=== PATIENT | male | born 1935 | race Caucasian/White ===

== ENCOUNTER 2021-04-19 09:28 | Emergency (ER) | payer MEDICARE, MEDICAID ==
[~2021-04-19] VITALS: Ht 182.9 cm; Wt 100.0 kg
[~2021-04-19 09:28] MED LIST: AMLODIPINE5 MG PO; ASPIRIN EC81 MG PO; ATORVASTATIN CA40 MG PO; BENAZEPRIL10 MG PO; CIPROFLOXACN500 MG OR; FLOMAX0.4 M1 OR; FLONASE NASAL50 MCG NAB; HYDROMORPHON2 MG OR; LISINOPRIL20 M1 PO; LOTREL 5/101 CAP OR; [UNRECOGNIZED DRUG - REMARK]
[2021-04-19 10:19] LABS: IMMATURE GRANULOCYTES 0.3 % (0.0-5.0); MEAN CORPUSCULAR HGB 31.5 pG CALC (26.0-32.0); MEAN CORPUSCULAR HGB CONC 33.3 g/dL CAL (32.0-36.0); NEUT# 4.79 thou/uL (1.82-7.42); RED BLOOD COUNT 4.44 mill/uL (4.70-6.10); RED CELL DISTRI WIDTH 12.6 % (11.5-15.5)
[2021-04-19 10:20] LABS: MEAN CELL VOLUME 94.6 fL CALC (80.0-100.0)
[2021-04-19 10:28] LABS: ALBUMIN 4.4 g/dL (3.2-5.0); ALKALINE PHOSPHATASE 91 u/l (38-126); ANION GAP 13 (6-22 (CALC)); BILIRUBIN, TOTAL 0.6 mg/dL (0.0-1.4); BUN 22 mg/dL (8-23); BUN/CREATININE RATIO 22 (12-20 (CALC)); CARBON DIOXIDE 25 mmol/l (22-30); CHLORIDE 107 mmol/l (95-108); GFR > 60 ML/MIN (>=60 (CALC)); GFR FOR AFR.AMER. > 60 ML/MIN (>=60 (CALC)); LIPASE 124 u/l (23-300); SGOT/AST 28 u/l (19-48); SODIUM 141 mmol/l (137-146); TOTAL PROTEIN 7.6 g/dL (6.3-8.2)
[2021-04-19 10:48] LABS: URINE BILIRUBIN - DIPSTICK NEGATIVE (NEGATIVE); URINE BLOOD DIPSTICK NEGATIVE (NEGATIVE); URINE COLOR YELLOW; URINE GLUCOSE - DIPSTICK NEGATIVE (NEGATIVE); URINE KETONE NEGATIVE (NEGATIVE); URINE LEUK ESTERASE NEGATIVE (NEGATIVE); URINE PROTEIN - DIPSTICK NEGATIVE (NEG-TRACE); URINE UROBILINOGEN - DIPSTICK 0.2 E.U./dL (0.2)
[2021-04-19 10:55] LABS: URINE NITRITE - DIPSTICK NEGATIVE (Negative)
[2021-04-19 12:17] VITALS: BP 158/89
== END 2021-04-19 12:17 | disposition home or self-care (01) ==
LOC: ED 09:28
PROVIDERS: Family Medicine
DX: R13.10 Dysphagia, unspecified (principal); M54.2 Cervicalgia; M79.604 Pain in right leg; V89.2XXA Person injured in unspecified motor-vehicle accident, traffic, initial encounter

== ENCOUNTER 2021-12-13 11:48 | Emergency (ER) | payer MEDICARE, MEDICAID ==
[~2021-12-13] VITALS: Ht 182.9 cm; Wt 95.2 kg
[2021-12-13] MEDS ORDERED: EC-NAPROXEN375 MG PO (14:57)
[2021-12-13] MEDS ORDERED: METHOCARBAMOL500 MG PO (14:57)
[2021-12-13 15:04] VITALS: BP 149/94
[2021-12-13 15:31] LABS: URINE BILIRUBIN - DIPSTICK NEGATIVE (NEGATIVE); URINE BLOOD DIPSTICK NEGATIVE (NEGATIVE); URINE COLOR YELLOW; URINE GLUCOSE - DIPSTICK NEGATIVE (NEGATIVE); URINE KETONE NEGATIVE (NEGATIVE); URINE LEUK ESTERASE NEGATIVE (NEGATIVE); URINE PROTEIN - DIPSTICK TRACE mg/dL (NEG-TRACE); URINE SPECIFIC GRAVITY 1.025; URINE UROBILINOGEN - DIPSTICK 0.2 E.U./dL (0.2)
[2021-12-13 15:32] LABS: URINE NITRITE - DIPSTICK NEGATIVE (Negative)
== END 2021-12-13 16:14 | disposition home or self-care (01) ==
LOC: ED 11:48
PROVIDERS: Nurse Practitioner
DX: M62.838 Other muscle spasm (principal)

== ENCOUNTER 2024-01-07 12:19 | Emergency (ER) | payer OTHER, MEDICARE, MEDICAID ==
[~2024-01-07] VITALS: Ht 182.9 cm; Wt 83.1 kg
[~2024-01-07 12:19] MED LIST changes: +EC-NAPROXEN375 MG PO; +MEDDOSEPAK PO; +METHOCARBAMOL500 MG PO; +NAPROXEN220 MG PO; +TRAMADOL HYDROC50 M1 PO; +ZPAK PO
[2024-01-07 12:57] VITALS: BP 157/100
[2024-01-07 13:00] VITALS: BP 153/97
[2024-01-07] MEDS ORDERED: KETOROLAC TROMETHAMINE 15 MG/ML SDV IM ONE (13:10)
[2024-01-07] MEDS ORDERED: traMADol HCL 50 MG/TAB PO ONE (13:10)
[2024-01-07] MEDS ORDERED: PREDNISONE10 MG PO (13:59)
[2024-01-07] MEDS ORDERED: NAPROXEN220 MG PO (13:59)
[2024-01-07 14:18] VITALS: BP 148/91
== END 2024-01-07 14:24 | disposition home or self-care (01) | DRG 552 ==
LOC: ED 12:19
DX: M51.36 Other intervertebral disc degeneration, lumbar region (principal); I10 Essential (primary) hypertension; E11.9 Type 2 diabetes mellitus without complications; R33.9 Retention of urine, unspecified; Z96.0 Presence of urogenital implants

== ENCOUNTER 2024-06-20 11:46 | Emergency (ER) | payer MEDICARE, MEDICAID ==
[2024-06-20] VITALS (8 sets, daily range): BP systolic 144–180; BP diastolic 88–113
[~2024-06-20] VITALS: Ht 182.9 cm; Wt 81.0 kg
[~2024-06-20 11:46] MED LIST changes: +PREDNISONE10 MG PO
[2024-06-20] MEDS ORDERED: TAMSULOSIN0.4 MG PO (14:21)
== END 2024-06-20 14:26 | disposition home or self-care (01) ==
LOC: ED 11:46
DX: Z46.6 Encounter for fitting and adjustment of urinary device (principal); I10 Essential (primary) hypertension; E11.9 Type 2 diabetes mellitus without complications